=== PATIENT | male | born 1970 | race Asian ===

== ENCOUNTER 2016-08-11 22:38 | Emergency (ER) | payer MEDICAID ==
[~2016-08-11] VITALS: Ht 160 cm; Wt 62.6 kg
[2016-08-11 23:31] VITALS: BP 143/81
== END 2016-08-12 01:42 | disposition home or self-care (01) ==
LOC: ER 22:39
DX: S46.911A Strain of unspecified muscle, fascia and tendon at shoulder and upper arm level, right arm, initial encounter (principal); E11.9 Type 2 diabetes mellitus without complications; I10 Essential (primary) hypertension; J40 Bronchitis, not specified as acute or chronic; H11.31 Conjunctival hemorrhage, right eye; X58.XXXA Exposure to other specified factors, initial encounter; Y93.89 Activity, other specified; Y99.8 Other external cause status; Y92.89 Other specified places as the place of occurrence of the external cause

== ENCOUNTER 2018-03-03 07:27 | Emergency (ER) | payer MEDICAID ==
[~2018-03-03] VITALS: Ht 152.4 cm; Wt 61.2 kg
[2018-03-03 07:40] VITALS: BP 134/87
== END 2018-03-03 08:34 | disposition home or self-care (01) ==
LOC: ER 07:27
DX: M75.91 Shoulder lesion, unspecified, right shoulder (principal); E11.9 Type 2 diabetes mellitus without complications; I10 Essential (primary) hypertension